=== PATIENT | female | born 1960 | race Caucasian/White ===

== ENCOUNTER 2017-09-18 17:49 | Emergency (ER) | payer OTHER ==
[~2017-09-18 17:49] MED LIST: LEVOTHYROXINE200 MC1 PO; ZETIA10 M1 PO
--- NOTE | 2017-09-18 18:34 | ED MVC/FALL/TRAUMA COMPLAINT ---
History of Present Illness General Chief Complaint: Upper Extremity Injury Stated Complaint: SWELLING TO RT ARM DUE TO FALL Source: patient Exam Limitations: no limitations Vital Signs & Intake/Output Vital Signs & Intake/Output Vital Signs Date Time Temp Pulse Resp B/P B/P Pulse O2 O2 Flow FiO2 Mean Ox Delivery Rate 09/18 1756 74 22 117/82 97 Room Air Allergies Coded Allergies: penicillin G (08/06/15) Reconcile Medications Ezetimibe (Zetia) 10 MG TABLET 1 TAB PO DAILY cholesterol (Reported) Levothyroxine Sodium 200 MCG TABLET 0.5 TAB PO DAILY thyroid (Reported) Triage Note: per pt fell on crack at [employer] pain to rt forearm, and forehead no loc pt on plavix Triage Nurses Notes Reviewed? yes Onset: Abrupt Duration: minute(s):, constant Timing: single episode today Severity: mild Injuries/Fall Location: upper extremity Loss of Consciousness: no loss of consciousness No Modifying Factors: none HPI: 57-year-old female with a history of stroke with left-sided deficit was walking into [employer] when she stepped on a crack/hole in the ground and fell forward onto her right forearm. She reports that she fell on her forearm primarily. She did not hit her head hard on the ground by her head did scrape the pavement. She denies any loss of consciousness or headache at all. She reports that she came in because she has some swelling to her right forearm but denies any pain to her forearm. Denies any chest pain abdominal pain . Pain or pain anywhere else. Denies any other associated symptoms. (Sohan Harris) Past History Travel History Traveled to [place] past 21 day No Medical History Any Pertinent Medical History? see below for history Neurological: CVA EENT: NONE Cardiovascular: hyperlipidemia, STENT Respiratory: obstructive sleep apnea Hepatic: NONE Renal: NONE Musculoskeletal: BACK PAIN neck pain, R cerv radic Endocrine: hypothyroidism Surgical History Surgical History: N Psychosocial History Services at Home None What is your primary language Czech Tobacco Use: Never used Family History Family History, If Any: Relation not specified for: FH: heart disease Stroke or transient ischemic attack in father Hx Contributory? No (Sohan Harris) Review of Systems Review of Systems Constitutional: Reports: no symptoms. Eyes: Reports: no symptoms. Ears, Nose, Throat, Mouth: Reports: no symptoms. Respiratory: Reports: no symptoms. Cardiovascular: Reports: no symptoms. Gastrointestinal/Abdominal: Reports: no symptoms. Genitourinary: Reports: no symptoms. Musculoskeletal: Reports: see HPI. Skin: Reports: no symptoms. Neurological/Psychological: Reports: no symptoms. All Other Systems: Reviewed and Negative (Sohan Harris) Physical Exam Physical Exam General Appearance: well developed/nourished, alert, awake Head: atraumatic Eyes: Bilateral: normal appearance, PERRL, EOMI. Ears, Nose, Throat, Mouth: hearing grossly normal, moist mucous membrane Neck: normal inspection Respiratory: normal breath sounds, no respiratory distress Cardiovascular: regular rate/rhythm Extremities: Swelling to right forearm, full range of motion of elbow, full range of motion of right wrist, no bony tenderness, radial pulses 2+, pollution control engineer strength intact, sensation intact, Neurologic/Psych: awake, alert, oriented x 3 Skin: intact Core Measures ACS in differential dx? No CVA/TIA Diagnosis No Sepsis Present: No Sepsis Focused Exam Completed? No (Sohan Harris) Progress Differential Diagnosis: abd injury, C/T/L spine injury, ext injury, ICH, pelvis injury, pnemothorax, spinal cord injury, contusion/hematoma Plan of Care: Orders Procedure Date/time Status XRY-FOREARM, RIGHT 09/18 1756 Active Diagnostic Imaging: Viewed by Me: Radiology Read. Discussed w/RAD: Radiology Read. Radiology Impression: PATIENT: JUSTIN FUENTES PRESENT AGE: 57 PATIENT ACCOUNT NO: [id number] : 60 LOCATION: [facility] ORDERING PHYSICIAN: Sohan RINALDI SERVICE DATE: 09/18/17 EXAM TYPE: RAD - XRY-FOREARM, RIGHT EXAMINATION: XR FOREARM, RIGHT CLINICAL INFORMATION: Right forearm swelling, pain. COMPARISON: None TECHNIQUE: AP and lateral views of the right forearm were obtained. FINDINGS: There is no acute fracture or malalignment. There are mild degenerative changes of the right elbow joint. There are 2 degenerative or posttraumatic ossific bodies lateral to the lateral humeral condyle. There is soft tissue swelling on the dorsum of the proximal to mid forearm. IMPRESSION: 1. Mild degenerative changes of the right elbow joint. Two degenerative or posttraumatic ossific bodies lateral to the lateral humeral condyle. 2. Soft tissue swelling on the dorsum of the proximal to mid forearm. No fracture. DICTATED BY: Truong Jones MD DATE/TIME DICTATED:09/18/171848 COOK LARDER:JUANITO DATE/TIME TRANSCRIBED:09/18/171848 CONFIDENTIAL, DO NOT COPY WITHOUT APPROPRIATE AUTHORIZATION. <Electronically signed in Other Vendor System> SIGNED BY: Truong Jones MD 09/18/17 [id number] Comments: 09/18/2017 7:15:40 PM Patient clinically looks well. In no apparent distress. No evidence of fracture to forearm. Patient only increase her head on the ground. No high impact. No headache. No neurological symptoms. Mechanical fall. Clemente wrap use for compression of right forearm. Patient is stable for discharge at this time. (Luis RINALDI,Sohan) Departure Departure Disposition: HOME OR SELF CARE Condition: Stable Clinical Impression Primary Impression: Traumatic hematoma of right forearm Referrals: Merced Borden MD (PCP/Family) Additional Instructions: Keep the Clemente wrap on for compression. Return if any severe headache vomiting or any other concerns worsening symptoms. Please go over all results of today's visit with your primary care doctor. Contact your primary care doctor to let them know you were here in the emergency room. There may be nonspecific findings which may not be related to your visit today here in the emergency room but may require further evaluation and chronic monitoring by your primary care doctor. If you had a laceration today the chance of foreign body always remains. You should follow-up with your primary care doctor for recheck in 3-5 days for a wound check. If you had an x-ray done there is a chance that a fracture could have been missed on initial read and you should follow-up with your primary care doctor for repeat x-rays if symptoms persist. If your blood pressure was elevated here in the emergency room please have rechecked by [facility] primary care doctor within the next 48. If you were prescribed a narcotic here in the emergency room or any type of controlled substances you're not allowed to drive while taking this medication or operate any type of heavy machinery. Narcotics can make you feel lightheaded dizziness nausea and can cause constipation. You may need to pickle sorter a stool softener. Thank you for choosing [facility] emergency room. Please return to the emergency room immediately if you have any other concerns worsening of symptoms. Departure Forms: Customer Survey General Discharge Information (Sohan Harris) PA/AUTO SERVICE STATION ATTENDANT Co-Sign Statement Statement: ED Attending supervision documentation- [] I saw and evaluated the patient. I have also reviewed all the pertinent lab results and diagnostic results. I agree with the findings and the plan of care as documented in the PA's/AUTO SERVICE STATION ATTENDANT's documentation. [x] I have reviewed the ED Record and agree with the PA's/AUTO SERVICE STATION ATTENDANT's documentation. [] Additions or exceptions (if any) to the PAs/AUTO SERVICE STATION ATTENDANT's note and plan are summarized below: [] (Jose Antonio Guerra DO)
--- NOTE | 2017-09-18 19:03 | RADIOLOGY REPORT ---
EXAMINATION: XR FOREARM, RIGHT CLINICAL INFORMATION: Right forearm swelling, pain. COMPARISON: None TECHNIQUE: AP and lateral views of the right forearm were obtained. FINDINGS: There is no acute fracture or malalignment. There are mild degenerative changes of the right elbow joint. There are 2 degenerative or posttraumatic ossific bodies lateral to the lateral humeral condyle. There is soft tissue swelling on the dorsum of the proximal to mid forearm. IMPRESSION: 1. Mild degenerative changes of the right elbow joint. Two degenerative or posttraumatic ossific bodies lateral to the lateral humeral condyle. 2. Soft tissue swelling on the dorsum of the proximal to mid forearm. No fracture.
[2017-09-18 19:09] VITALS: BP 136/79
== END 2017-09-18 19:26 ==
LOC: ERH 17:49
DX: S50.11XA Contusion of right forearm, initial encounter (principal); W19.XXXA Unspecified fall, initial encounter; Y92.512 Supermarket, store or market as the place of occurrence of the external cause; Y93.01 Activity, walking, marching and hiking
CPT/HCPCS: 73090-RT